=== PATIENT | female | born 1950 | race Two or more races ===

== ENCOUNTER 2017-12-19 10:57 | Day surgery (SDC) | payer MEDICARE, BC ==
[2017-12-14 13:57] LABS: BASOPHILS % (AUTO) 0.4 % (0-1); EOSINOPHILS # (AUTO) 0.2 X10'3 (0-0.9); EOSINOPHILS % (AUTO) 2.2 % (0-6); HEMATOCRIT 39.4 % (35.0-45.0); HEMOGLOBIN 13.5 g/dl (12.0-16.0); LYMPHOCYTES # (AUTO) 2.4 X10'3 (1.1-4.8); LYMPHOCYTES % (AUTO) 29.4 % (21-51); MEAN CORPUSCULAR HEMOGLOBIN 30.5 PG (27.0-31.0); MEAN CORPUSCULAR HGB CONC 34.4 % (33.0-36.5); MEAN CORPUSCULAR VOLUME 88.8 FL (78-98); MEAN PLATELET VOLUME 7.7 FL (7.4-10.4); MONOCYTES # (AUTO) 0.7 X10'3 (0-0.9); MONOCYTES % (AUTO) 8.6 % (2-12); NEUTROPHILS # (AUTO) 4.9 X10'3 (1.8-7.7); NEUTROPHILS % (AUTO) 59.4 % (42-75); PLATELET COUNT 304 X10'3 (140-440); RED BLOOD COUNT 4.44 X10'6 (4.20-5.60); RED CELL DISTRIBUTION WIDTH 14.1 % (11.5-14.5); WHITE BLOOD COUNT 8.3 X10'3 (4.5-11.0)
[2017-12-14 14:06] LABS: ALBUMIN 3.8 G/DL (3.4-5.0); ANION GAP 7 (8-16); BLOOD UREA NITROGEN 16 MG/DL (7-18); BUN/CREATININE RATIO 22.9 (6.6-38.0); CHLORIDE 105 MMOL/L (99-107); GLUCOSE 97 MG/DL (70-104); SODIUM 139 MMOL/L (135-145); eGFR 84 ML/MIN
[2017-12-14 14:08] LABS: PARTIAL THROMBOPLASTIN TIME 27 SECONDS (22-32); PROTHROMBIN TIME 9.9 SECONDS (9.0-12.0)
[2017-12-19] VITALS (9 sets, daily range): BP systolic 110–132; BP diastolic 61–90
[~2017-12-19] VITALS: Ht 152.4 cm; Wt 75.3 kg
[~2017-12-19 10:57] MED LIST: CALC-1051 PO; CHOL2000 PO; DOCU-28 PO; FERGLU300T PO; HYDR-565 PO; LEVO25TA2 PO; TRAZ-91 PO
[2017-12-19] MEDS ORDERED: diphenhydrAMINE 25mg capsule PO PRN (11:40)
[2017-12-19] MEDS ORDERED: LORazepam 0.5 MG tablet PO PRN (11:40)
[2017-12-19] MEDS ORDERED: normal saline 1000ml 1,000 ML IV SCH ×2 (11:40→15:25)
[2017-12-19] MEDS ORDERED: CITA-278 PO (11:46)
[2017-12-19] MEDS ORDERED: ATOR20TA PO (11:46)
[2017-12-19] MEDS ORDERED: ASPI-1265 PO (11:46)
[2017-12-19] MEDS ORDERED: NITR0.4T51 SL (11:46)
[2017-12-19] MEDS ORDERED: midazolam 2 mg/2 ml injection ONE (14:14)
[2017-12-19] MEDS ORDERED: LIDOcaine 1% 30ml preserv. free vial ONE (14:15)
[2017-12-19] MEDS ORDERED: iohexol 350MG/ML 100ml bottle IV ONE (14:15)
[2017-12-19] MEDS ORDERED: fentaNYL/PF 50MCG/1 ML 2ML syringe ONE (14:15)
[2017-12-19] MEDS ORDERED: HYDROcodone/acetaminophen 5mg/325mg tablet PO PRN (15:25)
[2017-12-19] MEDS ORDERED: ondansetron/PF 4mg/2ml inj IV PRN (15:25)
[2017-12-19] MEDS ORDERED: proCHLORperazine 10 MG/2 ml inj IV PRN (15:30)
[2017-12-19] MEDS ORDERED: OXAZEpam 15mg capsule PO PRN (15:30)
[2017-12-19] MEDS ORDERED: nitroGLYCERIN 0.4mg SUBLingual tab SL PRN (15:30)
[2017-12-19] MEDS ORDERED: acetaminophen 325mg tablet PO PRN (15:30)
[2017-12-19] MEDS ORDERED: HYDROcodone/acetaminophen 10/325mg tab PO PRN (15:30)
== END 2017-12-19 18:50 | disposition home or self-care (01) ==
LOC: SSTAY O 10:57
PROVIDERS: ATTEND Internal Medicine Interventional Cardiology
DX: R07.89 Other chest pain (principal); E78.5 Hyperlipidemia, unspecified; F41.9 Anxiety disorder, unspecified; F32.9 Major depressive disorder, single episode, unspecified; E03.9 Hypothyroidism, unspecified; Z79.899 Other long term (current) drug therapy; Z79.82 Long term (current) use of aspirin
CPT/HCPCS: 36415; 80048; 85025; 85610; 85730; 93005; 93458; 99152; A6257; C1769; J1644; J2250; J3010; J3490; J7030; Q0163; Q9967; 99153; A4620